=== PATIENT | male | born 1955 | race Caucasian/White ===

== ENCOUNTER 2016-08-13 04:14 | Emergency (ER) | payer MEDICARE, OTHER ==
[2016-08-13 05:29] LABS: HEMOGLOBIN 13.7 gm/dl (14.0-17.5); RED BLOOD COUNT 4.58 M/UL (4.20-5.50); WHITE BLOOD COUNT 7.4 K/UL (4.5-11.0)
[2016-08-13 05:49] LABS: BUN/CREATININE RATIO 5 (0-10)
[2017-01-07] MEDS ORDERED: ASPIR 8181 MG PO (23:00)
[2017-01-07] MEDS ORDERED: VENTOLIN/PROVE0.5 ML INH (23:01)
[2017-01-07] MEDS ORDERED: SINGULAIR10 MG PO (23:01)
[2017-01-07] MEDS ORDERED: PROAIR HFA8.5 GM INH (23:02)
[2017-01-07] MEDS ORDERED: DULERA 100 MCG8.8 GM INH (23:03)
[2017-01-07] MEDS ORDERED: METOPROLOL TART25 MG PO (23:03)
[2017-01-07] MEDS ORDERED: LIPITOR TAB 2020 MG PO (23:03)
[2017-01-08] MEDS ORDERED: PREDNISONE 10 M10 MG PO (11:53)
[2017-01-08] MEDS ORDERED: LEVAQUIN TAB 5500 MG PO (11:54)
== END 2016-08-13 12:56 | disposition home or self-care (01) ==
LOC: ER1 04:14
PROVIDERS: Family Medicine
DX: J20.9 Acute bronchitis, unspecified (principal); I25.10 Atherosclerotic heart disease of native coronary artery without angina pectoris; J45.909 Unspecified asthma, uncomplicated; Z88.0 Allergy status to penicillin; Z79.82 Long term (current) use of aspirin; Z79.899 Other long term (current) drug therapy
CPT/HCPCS: 36415; 71010; 71020; 80053; 82550; 82553; 83874; 84484; 85025; 85379; 93005; 94664; 96374; 99285; J1100; Q9963

== ENCOUNTER → 2016-08-18 | Outpatient (CLI) | payer MEDICARE, OTHER ==
[~2016-08-18] MED LIST: ASPIR 8181 MG PO; DULERA 100 MCG8.8 GM INH; LEVAQUIN TAB 5500 MG PO; LIPITOR TAB 2020 MG PO; METOPROLOL TART25 MG PO; PREDNISONE 10 M10 MG PO; PROAIR HFA8.5 GM INH; SINGULAIR10 MG PO; VENTOLIN/PROVE0.5 ML INH
== END ==
LOC: KOH-I 09:30
DX: K76.89 Other specified diseases of liver (principal); R16.0 Hepatomegaly, not elsewhere classified
CPT/HCPCS: 74170; Q9962

== ENCOUNTER → 2016-08-25 | Outpatient (CLI) | payer MEDICARE, OTHER | LOC: KOH-I 10:45 | DX: K76.89 Other specified diseases of liver (principal); K76.9 Liver disease, unspecified | CPT/HCPCS: 76705 ==

== ENCOUNTER → 2020-07-18 | Outpatient (CLI) | payer MEDICARE | LOC: RAD 14:15 | DX: R06.02 Shortness of breath (principal); J98.4 Other disorders of lung | CPT/HCPCS: 71046 ==

== ENCOUNTER → 2020-11-17 | Outpatient (CLI) | payer MEDICARE | LOC: ECHO 11-14 11:00 | DX: I35.1 Nonrheumatic aortic (valve) insufficiency (principal); I77.819 Aortic ectasia, unspecified site; I51.7 Cardiomegaly; I37.1 Nonrheumatic pulmonary valve insufficiency | CPT/HCPCS: ECHO; 93306 ==